=== PATIENT | female | born 1990 | race Caucasian/White ===

== ENCOUNTER 2022-11-11 13:26 | Outpatient (CLI) | payer OTHER, SELFPAY | END 2022-11-11 13:27 | disposition home or self-care (01) | LOC: NFLDREF 11-12 08:22 | PROVIDERS: PCP Family Medicine; Referring Provider Family Medicine; Visit Provider Obstetrics & Gynecology | DX: R39.9 Unspecified symptoms and signs involving the genitourinary system (principal) | CPT/HCPCS: 87086 ==

== ENCOUNTER 2022-11-12 09:44 | Outpatient (CLI) | payer OTHER, SELFPAY ==
--- NOTE | 2022-11-12 10:15 | CRLHL7_ITS ---
For Patients: As a result of the Century Cures Act, medical imaging exams and procedure reports are released immediately into your electronic medical record. You may view this report before your referring provider. If you have questions, please contact your health care provider. CLINICAL HISTORY: ACUTE LLQ PAIN TECHNIQUE: 2D lr scale ultrasound. In addition color Doppler and spectral Doppler analysis was performed of the pelvis using a transabdominal and transvaginal approach. FINDINGS: The myometrium has a normal uniform echotexture. The uterus measures 8.0 x 3.3 x 5.1 cm. Intrauterine device is present within the endometrial canal. The right ovary measures 2.8 x 1.5 x 2.0 cm in size and the left ovary measures 6.1 x 4.8 x 5.5 cm. The ovaries demonstrate normal arterial and venous blood flow on color Doppler and spectral Doppler analysis. A complex left ovarian cyst is present measuring 5.8 x 4.0 x 5.2 cm. Internal hypoechoic and reticular echoes are present within this cyst. Trace physiologic free fluid. IMPRESSION: Hemorrhagic left ovarian cyst measuring 5.8 cm. No torsion. Good position of the IUD. Dictated by Jim Porter MD @ 11/12/2022 10:54:28 AM (Electronically Signed)
== END 2022-11-12 09:45 | disposition home or self-care (01) ==
LOC: US 09:45
PROVIDERS: PCP Family Medicine; Visit Provider Obstetrics & Gynecology
DX: R10.32 Left lower quadrant pain (principal); N83.202 Unspecified ovarian cyst, left side
CPT/HCPCS: 76830; 76856; 87491; 87591; 93976

== ENCOUNTER 2022-11-17 10:43 | Outpatient (CLI) | payer OTHER, SELFPAY ==
--- NOTE | 2022-11-17 10:45 | CRLHL7_ITS ---
For Patients: As a result of the Century Cures Act, medical imaging exams and procedure reports are released immediately into your electronic medical record. You may view this report before your referring provider. If you have questions, please contact your health care provider. INDICATION: HEAVY BLEEDING AND PAIN COMPARISON: 11/12/2022 TECHNIQUE: 2D lr scale and color Doppler images were acquired of the pelvis using a transabdominal and transvaginal approach. FINDINGS: Sonographic images demonstrate a normal size and smooth outer contour of the uterus. Uterus measures 7.1 cm in length by 3.3 cm in AP diameter by 4.6 cm in transverse dimension. The myometrium has a normal uniform echotexture. The endometrial lining appears normal and measures 3 mm in composite thickness. Good position of the IUD. The right ovary measures 2.6 x 1.7 x 1.8 cm in size and the left ovary measures 7.1 x 5.0 x 6.4 cm. The ovaries demonstrate normal arterial and venous blood flow on color Doppler analysis. Complex left ovarian cyst again noted measuring 6.5 x 4.7 x 6.2 cm. Previously, this measured 5.8 x 4.0 x 5.2 cm. Internal echoes are present throughout this cyst along with curvilinear reticular echoes. There are no suspicious fluid collections within the cul-de-sac. IMPRESSION: Hemorrhagic left ovarian cyst has increased in size compared to the prior study. Dictated by Jim Porter MD @ 11/17/2022 12:11:48 PM (Electronically Signed)
== END 2022-11-17 10:44 | disposition home or self-care (01) ==
LOC: US 10:44
PROVIDERS: PCP Family Medicine; Visit Provider Obstetrics & Gynecology
DX: N93.9 Abnormal uterine and vaginal bleeding, unspecified (principal); N83.202 Unspecified ovarian cyst, left side
CPT/HCPCS: 76830

== ENCOUNTER 2022-11-19 06:04 | Day surgery (SDC) | payer OTHER, SELFPAY ==
[2022-11-19] VITALS (14 sets, daily range): BP systolic 116–157; BP diastolic 53–93; PULSE 61–99; RESP 12–20; TEMP 36.2–37.1; O2SAT 94–100; BMI 22.1
[2022-11-19 06:27] LABS: Ur HCG Qualitative* Negative (Negative)
[2022-11-19] MEDS: LACTATED RINGERS 1000 ML 1,000 ML 100 ML IV (06:45)
[2022-11-19] MEDS: SODIUM CHLORIDE 0.9 % (FLUSH) 10 ML SYRINGE IVF (06:45)
[2022-11-19 07:14] LABS: Hemoglobin* 13.3 gm/dL (12.0-16.0)
[2022-11-19] MEDS: BUPIVACAINE 0.5 %/EPI 1:200K 30 ML INJECTION (08:05)
--- NOTE | 2022-11-19 09:11 | W.ANESCHARGE ---
Anesthesia Charges Start Date/Time Anesthesia Start Date: 11/19/22 Anesthesia Start Time: 07:30 Stop Date/Time Anesthesia Stop Date: 11/19/22 Anesthesia Stop Time: 09:37
--- NOTE | 2022-11-19 09:36 | W.ANESCHARGE ---
Anesthesia Charges Start Date/Time Anesthesia Start Date: 11/19/22 Anesthesia Start Time: 07:30 Stop Date/Time Anesthesia Stop Date: 11/19/22 Anesthesia Stop Time: 09:37
[2022-11-19] MEDS: fentaNYL 100 MCG/2 ML inj 50 MCG IVP ×3 (09:38→09:59)
[2022-11-19] MEDS: HYDROmorphone 0.5 mg/0.5 ml inj IVP ×2 (09:41→09:52)
--- NOTE | 2022-11-19 09:48 | PM.GYNPRLA ---
Procedure Pre-op/Post-op diagnoses: Pre-Op/Post-Op Diagnoses Operation Date: 11/19/22 07:30 <No data on this case meets the specified criteria> Procedure: Procedures Operation Date: 11/19/22 07:30 Actual Procedure Side Surgeon p Diagnostic Laparoscopy, Left Ovarian Cystectomy Lauren Gomez MD Narrative: Preoperative diagnosis: 32-year-old with 6 cm left hemorrhagic ovarian cyst. Postoperative diagnosis: 6 cm left hemorrhagic ovarian cyst. Procedure: Diagnostic laparoscopy, left ovarian cystectomy Anesthesia: General endotracheal Surgeon: Lauren Gomez MD Bat Lathe Operator: REYMUNDO Morrow EBL: 15 mL Urine output: 450 mL clear urine IVF: 700 ml Specimen: Left hemorrhagic ovarian cyst. Findings: On exam under anesthesia: Small amount of blood menstrual blood coming from cervical os. The uterus was anterior, 5 week size, mobile, without masses or nodularity palpable. Left adnexa with fullness. On laparoscopy: Filmy adhesions noted on right upper quadrant and descending epiploica to the left pelvic sidewall. Liver normal appearing. Small amount of blood in posterior cul-de-sac. The uterus, right fallopian tube, and right ovary were normal. Left ovary was noted to have a 6-7 cm ovarian cyst. Left fallopian tube normal in appearance. Cyst mobile and well circumscribed. Procedure: Patient was taken to the operating room where general anesthetic was found to be adequate. She was placed in the dorsal lithotomy position and an exam under anesthesia was performed with findings stated above. She was then prepped and draped in a normal sterile manner. Patient had carvalho cath placed and Sponge stick was placed vaginally to act as uterine manipulator. Attention was then turned to performing the laparoscopic portion of the procedure. All incisions were injected with 1% lidocaine prior to incision. A vertical 12 mm infraumbilical, incision was made and a 11 mm trocar placed via Rikki method under direct visualization with the laparoscope. The abdomen was then insufflated with carbon dioxide gas to a pressure of 15 mm of mercury. Two left 5 mm trocars were placed under direct visualization. One was placed 3-4 finger breaths medial to the ischial crests and a 2nd was placed hands breath medial and 3 cm superior to lower quadrant port. A diagnostic laparoscopy was then performed with findings stated above. Ligasure and soft jaw grasper were used to used to dissect the ovarian tissue off the cyst. Ovarian cyst ruptured towards the end of the removal and clear fluid mix with blood was noted. This was suctioned and the pelvis was irrigated copiously. Left wall was removed through left lower quadrant port. Hemostasis was achieved with monopolar energy on the exposed ovarian surface. Davion was applied to the exposed ovarian surface as well. Excellent hemostasis was noted at low pressure. The trocars were then removed under direct visualization. The CO2 gas was allowed to escape the infraumbilical port prior to its removal. Fascial at the umbilical port was closed with 0-vicryl in running continuous fashion. The skin was reapproximated with 4-0 monocryl. Two other incisions were reapproximated using 4-0 Monocryl in a running subcuticular manner. LiquiBand skin adhesive was then applied and adhesive dressings applied over each incision. The uterine manipulator was removed from the vaginal and Carvalho catheter was removed. The patient tolerated this procedure well. Sponge, lap and instrument counts were correct x2 at the end of the procedure and the patient was taken to the recovery area in stable condition.
[2022-11-19] MEDS: OXYCODONE 5 MG TABLET PO (10:32)
[2022-11-19] MEDS: PROCHLORPERAZINE 5 MG/ML VIAL 10 MG IV (11:33)
== END 2022-11-19 12:06 | disposition home or self-care (01) ==
PROVIDERS: PCP Family Medicine; Visit Provider Obstetrics & Gynecology
PROC: (CPT 49320; principal; 2022-11-19 07:15)
DX: N83.202 Unspecified ovarian cyst, left side (principal)
CPT/HCPCS: 58662; 36415; 81025; 840; 85018; 86850; 86900; 86901; 88305; A9270; J0330; J0780; J1100; J1170; J1885; J2405; J2710; J3010; J3490; J7120

== ENCOUNTER 2023-05-06 14:48 | Outpatient (CLI) | payer OTHER, SELFPAY ==
--- OUTSIDE RECORDS SUMMARY | 2023-05-06 14:50 | XMS_ITS | Clinical Summary ---
Author Name Unknown Organization [facility] Address [place], [place] [address] Care Team Providers Care Band Saw Operator Name Role Phone Arcadio Arita DO Primary Care Provide r Unavailable Allergies Active Allergy Reactions Criticality Noted Date Comments Sulfamethoxazole-Tri methoprim Vaginal Irritation Red/swollen Norelgestromin-Ethin .Estradiol Other - Describe In Comment Field 08/08/2014 Blood clot in the arm 05/08/10. Medications Medication Sig Dispensed Refills Start Date End Date Status magnesium citrate 100 mg cap Take 200 mg by mouth. 0 Active fluticasone (50 mcg per actuation) nasal solution (FLONASE) Inhale 1 [place] to both nostrils 2 times daily. 0 Active Active Problems Problem Noted Date Diagnosed Date labor in third trimester without deliver y 07/04/2021 Arm pain 08/08/2014 Leg pain, right 08/08/2014 History of DVT (deep vein thrombosis) 05/06/2010 Immunizations Name Administration Dates Next Due Tdap 12/07/2012 Family History Medical History Relation Name Comments Other Other Hypersomnia and Depression on Maternal side of family Blood Disease Paternal Grandfather Blood clot Relation Name Status Comments Other Paternal Grandfather Social History Tobacco Use Types Packs/Day Years Used Date Smoking Tobacco: Never Smokeless Tobacco: Never Alcohol Use Standard Drinks/Week Comments Not Asked 0 (1 standard drink = 0.6 oz pur e alcohol) Sex and Gender Information Value Date Recorded Sex Assigned at Not on file Gender Identity Not on file Sexual Orientation Not on file Obstetrics History Para Term AB IAB SAB Ectopic Multiple Livin g Live Births 1 0 0 0 0 0 0 0 0 0 Date Outcome GA Total Labor Labor/2nd/3rd Weight Sex Delivery Anes PTL Susan A1 A5 Name Cl in Last Filed Vital Signs Vital Sign Reading Time Taken Comments Blood Pressure 107/64 07/05/2021 7:30 AM CDT Pulse 96 07/05/2021 7:30 AM CDT Temperature 36.6 ??C (97.9 ??F) 07/05/2021 1:34 AM CD T Respiratory Rate 16 07/05/2021 1:34 AM CDT Oxygen Saturation 98% 07/04/2021 8:15 PM CDT Inhaled Oxygen Concentration - - Weight 54.8 kg (120 lb 14.4 oz) 04/12/2016 1:17 PM CONSTRUCTION EQUIPMENT TECHNICIAN Height 160 cm (5' 3) 04/12/2016 1:17 PM CONSTRUCTION EQUIPMENT TECHNICIAN Body Mass Index 21.42 04/12/2016 1:17 PM CONSTRUCTION EQUIPMENT TECHNICIAN Plan of Treatment Health Maintenance Due Date Last Done Comments COVID-19 vaccine series (#1) 03/31/1991 HIV for age 15-65 2005 Hepatitis C screening for ag e 18-79 2008 BMI (ht and wt on same day) for age 18+ 04/12/2017 04/12/2016 Depression screening for age 12+ 04/12/2017 04/12/2016 Influenza for age 9-49 12/03/2022 Tetanus booster 12/07/2022 12/07/2012 Pap test for age 21-65 01/31/2024 01/30/2021 Tdap Completed 12/07/2012, 12/07/2012 Pneumococcal series for age 6-64 Aged Out No longer eligible b ased on patient's age to complete this topic Advance Directives Latest Code Status on File Code Status Date Activated Date Inactivated Comments Full Code 07/04/2021 12:37 AM 07/05/2021 2:25 PM Question Answer Comments Code Status Discussion: Other Care Teams Band Saw Operator Relationship Specialty Start Date End Date Arcadio Arita DO PCP - General Family Practice 08/08/14
--- NOTE | 2023-05-06 14:52 | CRLHL7_ITS ---
For Patients: As a result of the Century Cures Act, medical imaging exams and procedure reports are released immediately into your electronic medical record. You may view this report before your referring provider. If you have questions, please contact your health care provider. CLINICAL HISTORY: Pelvic and perineal pain TECHNIQUE: Real time, lr scale images were acquired of the pelvis using a transabdominal and transvaginal approach. Color Doppler analysis was performed of the ovaries. FINDINGS: The uterus measures 7.7 x 3.2 x 4.6 centimeters and IUD in the endometrial cavity in appropriate position. Endometrium appears thin. Suboptimally visualized given the IUD. Corpus luteum cyst in the right ovary the right ovary measures 3.4 x 1.3 x 3.1 centimeters normal blood flow. Left ovary measures 2.7 x 1.5 x 1.8 centimeters with normal blood flow. Trace fluid in the pelvis. IMPRESSION: 1. IUD in the endometrial cavity in appropriate position. Unremarkable exam. Dictated by Araceli Mcgarry MD @ 05/09/2023 5:57:12 AM (Electronically Signed)
== END 2023-05-06 14:49 | disposition home or self-care (01) ==
LOC: US 14:48
PROVIDERS: PCP Family Medicine; Visit Provider Physician Assistant
DX: R10.2 Pelvic and perineal pain (principal); N89.8 Other specified noninflammatory disorders of vagina; Z30.431 Encounter for routine checking of intrauterine contraceptive device
CPT/HCPCS: 76830; 76856; 93976

== ENCOUNTER 2023-06-30 15:57 | Outpatient (CLI) | payer OTHER, SELFPAY | END 2023-06-30 15:58 | disposition home or self-care (01) | PROVIDERS: PCP Family Medicine; Visit Provider Family Medicine | DX: K91.2 Postsurgical malabsorption, not elsewhere classified (principal); K59.00 Constipation, unspecified; R10.30 Lower abdominal pain, unspecified; N91.2 Amenorrhea, unspecified | CPT/HCPCS: 80053; 84443; 84703; 86140; 87086 ==

== ENCOUNTER 2023-08-05 07:46 | Outpatient (CLI) | payer OTHER, SELFPAY ==
--- NOTE | 2023-08-05 08:57 | W.ANESCHARGE ---
Anesthesia Charges Start Date/Time Anesthesia Start Date: 08/05/23 Anesthesia Start Time: 08:29 Stop Date/Time Anesthesia Stop Date: 08/05/23 Anesthesia Stop Time: 08:54
== END 2023-08-05 07:47 | disposition home or self-care (01) ==
LOC: OP CLINIC 07:47
PROVIDERS: PCP Family Medicine; Visit Provider Internal Medicine
DX: R10.84 Generalized abdominal pain (principal)
CPT/HCPCS: 45380; 812; 88305; J2704

== ENCOUNTER 2023-08-19 14:43 | Outpatient (CLI) | payer OTHER, SELFPAY ==
--- OUTSIDE RECORDS SUMMARY | 2023-08-19 14:46 | XMS_ITS | Clinical Summary ---
Author Name Unknown Organization [facility] Address [place], [place] [address] Care Team Providers Care Lead Teller Name Role Phone Arcadio Arita DO Primary Care Provide r Unavailable Allergies Active Allergy Reactions Criticality Noted Date Comments Sulfamethoxazole-Tri methoprim Vaginal Irritation Red/swollen Norelgestromin-Ethin .Estradiol Other - Describe In Comment Field 08/08/2014 Blood clot in the arm 05/08/10. Medications Medication Sig Dispensed Refills Start Date End Date Status magnesium citrate 100 mg cap Take 200 mg by mouth. Active fluticasone (50 mcg per actuation) nasal solution (FLONASE) Inhale 1 [place] to both nostrils 2 times daily. Active Active Problems Problem Noted Date Diagnosed Date labor in third trimester without deliver y 07/04/2021 Arm pain 08/08/2014 Leg pain, right 08/08/2014 History of DVT (deep vein thrombosis) 05/06/2010 Encounters Date Type Department Care Team Description 08/05/2023 Lab Requisition [facility] [phone] Judson Pandey MD from Last 3 Months Immunizations Name Administration Dates Next Due Tdap [...] (120 lb 14.4 oz) 04/12/2016 1:17 PM BRAKE MACHINE OPERATOR Height 160 cm (5' 3) 04/12/2016 1:17 PM BRAKE MACHINE OPERATOR Body Mass Index 21.42 04/12/2016 1:17 PM BRAKE MACHINE OPERATOR Plan of Treatment Health Maintenance Due Date Last Done Comments HIV for age 15-65 2005 Hepatitis C screening for ag e 18-79 2008 BMI (ht and wt on same day) for age 18+ 04/12/2017 04/12/2016 Depression screening for age 12+ 04/12/2017 04/12/2016 COVID-19 vaccine series (2022- season) 2022 Tetanus booster 12/07/2022 12/07/2012 Influenza for age 9-49 12/04/2023 Pap test for age 21-65 05/06/2026 , 05/06/2023, 01/30/2021 Tdap Completed 12/07/2012, 12/07/2012 Pneumococcal series for age 6-64 Aged Out No longer eligible b ased on patient's age to complete this topic Procedures Procedure Name Priority Date/Time Associated Diagnosis Comments LAB TRACKING EVENT Routine 08/05/2023 8: 40 AM CDT PATH TISSUE EXAM Routine 08/05/2023 8:40 AM CDT HPV THIN PREP Routine 05/06/2023 9:10 AM BRAKE MACHINE OPERATOR from Last 3 Months or Most Recently Relevant to Health Maintenance Results * LAB TRACKING EVENT (08/05/2023 8:40 AM CDT) Other (Other) Client Collect / Unknown 08/05/2023 8:40 AM CDT 08/05/2023 9:10 PM CDT Judson Pandey MD LAB BILL ONLY [facility] [address] [place] [address], * PATH TISSUE EXAM (08/05/2023 8:40 AM CDT) Case Report Pathology Report ?Case: [id number] ? Authorizing Provider: ??Judson Pandey MD ?Collected: ? 08/05/2023 0840 ? Ordering Location: ? [facility] ?Received: ?08/06/2023 05 ? Pathologist: ? Sis Medina MD ? Specimens: ?? A) - Ileocecal Valve Biopsy ? B) - Colon Biopsy, random colon ? 08/08/2023 10:51 AM CDT [facility] Final Diagnosis A) COLON, ILEOCECAL VALVE, BIOPSY: 1. Normal ileocolonic mucosa 2. Negative for microscopic, active, and chronic colitis B) COLON, RANDOM, BIOPSY: 1. Normal colonic mucosa 2. Negative for microscopic, active, and chronic colitis 08/08/2023 10:51 AM CDT [facility] Clinical Information Colonoscopy. Indications: Generalized abdominal pain. Findings: Normal-appeari ng ileocecal valve and colon. Biopsied. 08/08/2023 10:51 AM CDT [facility] Gross Description A) Received in formalin is a cotto mucosal fragment measuring 3 mm in greatest dimension, which is entirely submitted in one cassette. It is labeled with the patient's name and designated ileocecal valve. B) Received in formalin are 5 cotto mucosal fragments averaging 3 mm in greatest dimension, which are entirely submitted in one cassette. It is labeled with the patient's name and designated random colon. Majo Nguyen Noon 08/06/2023 10:25 AM 08/08/2023 10:51 AM CDT [facility] Microscopic Description The final diagnosis is based on microscopic examination of appropriate sections of all specimens. 08/08/2023 10:51 AM CDT [facility] Additional Information Interpreted at [facility] - [address] [facility] [address], [place] [address] 08/08/2023 10:51 AM T [facility] Other (Ileocecal Valve Biopsy) 08/05/2023 8:40 AM CDT 08/06/2023 5:26 AM CDT Specimen (specimen) (Colon Biopsy) 08/05/2023 8:40 AM CDT 08/06/2023 5:26 AM CDT Judson Pandey MD PATHOLOGY/CYTOLOGY [facility] [address] [place] [id number], * HPV HIGH RISK (05/06/2023 9:10 AM BRAKE MACHINE OPERATOR) TYPE 16 Negative Negative 05/10/2023 1:41 PM BRAKE MACHINE OPERATOR [facility] TYPE 18 Negative Negative 05/10/2023 1:41 PM BRAKE MACHINE OPERATOR [facility] OTHER HIGH RISK TYPES Negative Negative 05/10/2023 1:41 PM BRAKE MACHINE OPERATOR [facility] Other (Cervical) 05/06/2023 9:10 AM BRAKE MACHINE OPERATOR 05/06/2023 5:16 PM BRAKE MACHINE OPERATOR Narrative [facility] - 05/10/2023 1:41 PM BRAKE MACHINE OPERATOR HPV types 16, 18, 31, 33, 35, 39, 45, 51, 52, 56, 58, 59, 66 and 68 DNA were undetectable or below the pre-set threshold. Methodology: [employer] 4800 HPV Test Barbara Hearn PA-C MICROBIOLOGY Performing Organization Address [facility] Co de Phone Number [facility] [address] [place] [address], from Last 3 Months or Most Recently Relevant to Health Maintenance Advance Directives * Full Code (Latest Code Status on File) Date Activated Date Inactivated Comments 07/04/2021 12:37 AM 07/05/2021 2:25 PM Question Answer Comments Code Status Discussion: Other Care Teams Lead Teller Relationship Specialty Start Date End Date Arcadio Arita DO PCP - General Family Practice 08/08/14
--- NOTE | 2023-08-19 15:00 | CT_ITS ---
Patient: ISABELA HERRERA Facility:?[facility] Patient ID:?[id number] Site Patient ID:?[id number]. Site :?1990 Study:?CT-Abdomen/Pelvis W/ 69CC ISOVUE 370-08/19/2023 3:18:21 PM Ordering Physician:?Jim Velazquez Final Report: INDICATION: Chronic abdominal pain. TECHNIQUE: CT abdomen and pelvis acquired with 69 cc Isovue 370 IV contrast. COMPARISON: None. FINDINGS: Lower chest: Unremarkable. Liver: Unremarkable. Normal in size and attenuation. No suspicious masses. Gallbladder and bile ducts: Unremarkable. No stones or inflammation. No biliary dilatation. Pancreas: Unremarkable. No mass or inflammation. Spleen: Multiple calcified granulomas. Otherwise unremarkable. Adrenal glands: Unremarkable. No nodules. Kidneys: Unremarkable. No suspicious masses, stones, or hydronephrosis. GI tract: Unremarkable. Normal in caliber. No sign of mass or inflammation. Normal appendix. Vasculature: Abdominal aorta is normal in caliber. Mesenteric arteries are patent. Lymph nodes: No lymphadenopathy. Peritoneum/Abdominal Wall: Unremarkable. No sign of mass or infiltration. No free air or significant free fluid. Pelvis: Unremarkable. Bones: Unremarkable for age. IMPRESSION: Unremarkable CT of the abdomen and pelvis. No findings to explain abdominal pain. Please note that all CT scans at this facility use dose modulation, iterative reconstruction, and/or weight-based dosing when appropriate to reduce radiation dose to as low as reasonably achievable. Dictated by Dilan Mejia MD @ 08/21/2023 12:29:23 PM Signed by:?Dilan Mejia MD @08/21/2023 12:29:23 PM (Electronic Signature)
== END 2023-08-19 14:44 | disposition home or self-care (01) ==
LOC: CT 14:44
PROVIDERS: PCP Family Medicine; Visit Provider Family Medicine
DX: R10.9 Unspecified abdominal pain (principal); G89.29 Other chronic pain
CPT/HCPCS: 74177; Q9967

== ENCOUNTER 2025-01-08 07:30 | Outpatient (CLI) | payer OTHER, SELFPAY | END 2025-01-08 07:31 | disposition home or self-care (01) | LOC: NFLDREF 01-10 09:41 | PROVIDERS: PCP Family Medicine; Referring Provider Family Medicine; Visit Provider Physician Assistant | DX: Z13.9 Encounter for screening, unspecified (principal); L68.0 Hirsutism; N92.0 Excessive and frequent menstruation with regular cycle | CPT/HCPCS: 80061; 82627; 82947; 84270; 84402; 84403; 84443 ==